=== PATIENT | female | born 1950 | race Caucasian/White ===

== ENCOUNTER → 2017-11-16 | Outpatient (CLI) | payer MEDICARE, MEDICAID | LOC: COL.RAD 11:20 | DX: J40 Bronchitis, not specified as acute or chronic (principal) ==

== ENCOUNTER 2018-01-25 14:08 | Day surgery (SDC) | payer MEDICARE, MEDICAID ==
[~2018-01-25] VITALS: Ht 165.1 cm; Wt 88.7 kg
[2018-01-25] MEDS ORDERED: VENTOLIN0.09 MG IH (14:21)
[2018-01-25] MEDS ORDERED: ALBUTEROL0.83 MG/ML (14:21)
[2018-01-25 14:26] VITALS: BP 115/75; PULSE 103; TEMP 98.1
[2018-01-25 16:05] VITALS: BP 120/77; PULSE 111; TEMP 98.3
[2018-01-25 16:15] VITALS: BP 111/76; PULSE 107
[2018-01-25 16:30] VITALS: BP 138/88; PULSE 119
[2018-01-25 16:45] VITALS: BP 158/96; PULSE 110
== END 2018-01-25 17:45 | disposition home or self-care (01) ==
LOC: SDCO 14:08
DX: Z12.11 Encounter for screening for malignant neoplasm of colon (principal); D12.0 Benign neoplasm of cecum; D12.5 Benign neoplasm of sigmoid colon
CPT/HCPCS: J2250; J3010

== ENCOUNTER → 2018-03-02 | Outpatient (CLI) | payer MEDICAID ==
[~2018-03-02] MED LIST: ALBUTEROL0.83 MG/ML; VENTOLIN0.09 MG IH
== END ==
LOC: COL.RAD 12:16
DX: J40 Bronchitis, not specified as acute or chronic (principal)

== ENCOUNTER → 2018-04-20 | Outpatient (CLI) | payer MEDICARE, MEDICAID | LOC: COL.RAD 10:53 | DX: Z01.818 Encounter for other preprocedural examination (principal); K80.11 Calculus of gallbladder with chronic cholecystitis with obstruction; M43.16 Spondylolisthesis, lumbar region; Z90.710 Acquired absence of both cervix and uterus | CPT/HCPCS: Q9967 ==

== ENCOUNTER → 2018-04-28 | Outpatient (CLI) | payer MEDICARE, MEDICAID ==
[2018-04-28 11:31] LABS: BASO % 0.4 % (0.0-2.0); EOS # 0.1 (0.0-0.7); EOS % 0.7 % (0-4.0); GRAN # 8.3 (1.4-6.5); GRAN % 78.1 % (42.2-75.2); HEMATOCRIT 41.3 % (37.0-47.0); HEMOGLOBIN 14.1 g/dl (12.5-16.0); LYMPH # 1.6 (1.2-3.4); LYMPH % 14.6 % (20.0-51.0); MEAN CELL VOLUME 88 fl (80.0-100.0); MEAN CORPUSCULAR HEMOGLOBIN 30 pg (27.0-31.0); MEAN CORPUSCULAR HGB CONC 34 g/dl (33.0-37.0); MEAN PLATELET VOLUME 9.7 fl (7.4-10.4); MONO # 0.6 (0.1-0.6); MONO % 5.6 % (1.7-9.3); PLATELET COUNT 305 K/mm3 (130-400); RED BLOOD COUNT 4.69 M/mm3 (4.10-5.30); REDCELL DISTRIBUTION WIDTH-CV 12.4 % (11.5-14.5)
[2018-04-28 11:41] LABS: CALCIUM 9.6 mg/dL (8.4-10.2); CREATININE, serum 0.7 mg/dL (0.52-1.25); POTASSIUM 4.1 mmol/L (3.4-5.0)
== END ==
LOC: COL.LAB 10:40
PROVIDERS: Registered Nurse
DX: Z01.812 Encounter for preprocedural laboratory examination (principal); Z13.6 Encounter for screening for cardiovascular disorders; R09.89 Other specified symptoms and signs involving the circulatory and respiratory systems

== ENCOUNTER 2018-05-28 15:14 | Emergency (ER) | payer MEDICARE, MEDICAID ==
[~2018-05-28] VITALS: Ht 165.1 cm; Wt 87.7 kg
[2018-05-28] MEDS ORDERED: MEDROL 4MG DOSPA4 MG PO (15:57)
[2018-05-28] MEDS ORDERED: LEVAQUIN 750MG750 M1 PO (15:57)
[2018-05-28 16:33] VITALS: BP 94/60; PULSE 117; TEMP 97.3
== END 2018-05-28 16:49 | disposition home or self-care (01) ==
LOC: COL.ER 15:14
DX: J20.9 Acute bronchitis, unspecified (principal)
CPT/HCPCS: J1885; J7512

== ENCOUNTER → 2018-06-22 | Outpatient (CLI) | payer MEDICARE, MEDICAID ==
[~2018-06-22] MED LIST changes: +LEVAQUIN 750MG750 M1 PO; +MEDROL 4MG DOSPA4 MG PO
== END ==
LOC: COL.PUL 12:58
DX: R06.02 Shortness of breath (principal)

== ENCOUNTER → 2018-08-16 | Outpatient (CLI) | payer MEDICARE, MEDICAID ==
[2018-08-16 12:24] LABS: BASO % 0.5 % (0.0-2.0); EOS # 0.2 (0.0-0.7); EOS % 2.7 % (0-4.0); GRAN # 5.5 (1.4-6.5); GRAN % 64.2 % (42.2-75.2); HEMATOCRIT 43.5 % (37.0-47.0); HEMOGLOBIN 14.3 g/dl (12.5-16.0); LYMPH # 2.1 (1.2-3.4); LYMPH % 24.2 % (20.0-51.0); MEAN CELL VOLUME 91 fl (80.0-100.0); MEAN CORPUSCULAR HEMOGLOBIN 30 pg (27.0-31.0); MEAN CORPUSCULAR HGB CONC 33 g/dl (33.0-37.0); MEAN PLATELET VOLUME 9.8 fl (7.4-10.4); MONO # 0.7 (0.1-0.6); MONO % 7.9 % (1.7-9.3); PLATELET COUNT 325 K/mm3 (130-400); RED BLOOD COUNT 4.79 M/mm3 (4.10-5.30); REDCELL DISTRIBUTION WIDTH-CV 12.8 % (11.5-14.5)
[2018-08-16 12:28] LABS: MUCOUS Present /lpf; PH 6 (5-8); URINE APPEARANCE Clear; URINE BACTERIA None Seen /hpf; URINE BILIRUBIN Negative (NEGATIVE); URINE BLOOD 2+ (NEGATIVE); URINE COLOR Yellow; URINE GLUCOSE Negative (NEGATIVE); URINE KETONE Negative (NEGATIVE); URINE LEUKOCYTE ESTERASE Negative (NEGATIVE); URINE NITRATE Negative (NEGATIVE); URINE PROTEIN(semi-quant) Negative (NEGATIVE); URINE UROBILINOGEN Negative (NEGATIVE)
[2018-08-16 12:31] LABS: ALBUMIN 4.3 gm/dL (3.5-5.0); BILIRUBIN,TOTAL 0.5 mg/dL (0.0-1.0); CALCIUM 9.7 mg/dL (8.4-10.2); CREATININE, serum 0.69 (0.52-1.25); POTASSIUM 4.2 mmol/L (3.4-5.0); TOTAL PROTEIN 8.2 gm/dL (6.4-8.2)
[2018-08-16 12:38] LABS: COLLECTION METHOD CLEAN CATCH
== END ==
LOC: COL.LAB 11:38
PROVIDERS: Registered Nurse
DX: Z01.818 Encounter for other preprocedural examination (principal); N39.45 Continuous leakage

== ENCOUNTER → 2019-02-02 | Outpatient (CLI) | payer MEDICARE, MEDICAID ==
[~2019-02-02] MED LIST changes: +CLARITIN 1010 MG/TAB PO; +PRILOSEC 20MG20 MG PO; +TOVIAZ8 MG PO
== END ==
LOC: COL.RAD 13:54
DX: J98.4 Other disorders of lung (principal); Z87.09 Personal history of other diseases of the respiratory system

== ENCOUNTER → 2019-03-13 | Outpatient (CLI) | payer MEDICARE, MEDICAID ==
[~2019-03-13] VITALS: Ht 158.8 cm; Wt 92.5 kg
[~2019-03-13] MED LIST changes: +WELLBUTRIN XL300 M1 PO
[2019-03-13 15:29] VITALS: BP 154/68; PULSE 92
== END ==
LOC: LIGHT 15:19
DX: Z68.36 Body mass index [BMI] 36.0-36.9, adult (principal); J98.4 Other disorders of lung; N39.3 Stress incontinence (female) (male); K21.9 Gastro-esophageal reflux disease without esophagitis
CPT/HCPCS: G0463

== ENCOUNTER → 2019-04-10 | Outpatient (CLI) | payer MEDICARE, MEDICAID ==
[~2019-04-10] VITALS: Ht 158.8 cm; Wt 89.6 kg
[2019-04-10 14:59] VITALS: BP 144/76; PULSE 96
== END ==
LOC: LIGHT 14:31
DX: Z68.35 Body mass index [BMI] 35.0-35.9, adult (principal); J98.4 Other disorders of lung; N39.3 Stress incontinence (female) (male); K21.9 Gastro-esophageal reflux disease without esophagitis
CPT/HCPCS: G0463

== ENCOUNTER → 2019-06-01 | Outpatient (CLI) | payer MEDICARE, MEDICAID ==
[2019-06-01 21:39] LABS: IMMUNOGLOBULIN A 323 mg/dL (69-517); IMMUNOGLOBULIN G 1298 mg/dL (552-1631); IMMUNOGLOBULIN M, QUANTITATIVE 60 mg/dL (33-293)
== END ==
LOC: COL.LAB 12:10
PROVIDERS: Student in an Organized Health Care Education/Training Program
DX: J32.9 Chronic sinusitis, unspecified (principal)

== ENCOUNTER → 2019-08-21 | Outpatient (CLI) | payer MEDICARE, MEDICAID ==
[~2019-08-21] VITALS: Ht 158.8 cm; Wt 95.0 kg
[2019-08-21 16:41] VITALS: BP 128/94; PULSE 94
== END ==
LOC: LIGHT 15:47
DX: E66.8 Other obesity (principal); Z68.37 Body mass index [BMI] 37.0-37.9, adult; K21.9 Gastro-esophageal reflux disease without esophagitis; J98.4 Other disorders of lung
CPT/HCPCS: G0463

== ENCOUNTER → 2019-09-11 | Outpatient (CLI) | payer MEDICARE, MEDICAID ==
[~2019-09-11] VITALS: Ht 158.8 cm; Wt 95.0 kg
[2019-09-11 15:04] VITALS: BP 132/86; PULSE 88
== END ==
LOC: LIGHT 11:30
DX: E66.8 Other obesity (principal); Z68.37 Body mass index [BMI] 37.0-37.9, adult; J98.4 Other disorders of lung; K21.9 Gastro-esophageal reflux disease without esophagitis
CPT/HCPCS: G0463

== ENCOUNTER → 2019-11-01 | Outpatient (CLI) | payer MEDICARE, MEDICAID | LOC: MC.RAD 15:59 | DX: Z12.31 Encounter for screening mammogram for malignant neoplasm of breast (principal); N95.1 Menopausal and female climacteric states ==

== ENCOUNTER 2020-03-04 15:15 | Inpatient (IN) | payer MEDICARE, MEDICAID ==
[~2020-03-04] VITALS: Ht 165.1 cm; Wt 93.0 kg
[2020-03-04 17:19] LABS: C-REACTIVE PROTEIN 7.5 mg/dL (0.0-0.9)
[2020-03-04 17:30] LABS: TROPONIN-I < 0.012 ng/mL (0.000-0.035)
[2020-03-04 18:01] LABS: ALBUMIN 3.5 gm/dL (3.5-5.0); BILIRUBIN,TOTAL 0.6 mg/dL (0.0-1.0); CALCIUM 8.1 mg/dL (8.4-10.2); CREATININE, serum 0.77 (0.52-1.25); TOTAL PROTEIN 6.9 gm/dL (6.4-8.2)
[2020-03-04 18:28] LABS: COLLECTION METHOD CLEAN CATCH
[2020-03-04 18:31] LABS: BASO % 0.2 % (0.0-2.0); GRAN # 3.5 (1.4-6.5); GRAN % 80.3 % (42.2-75.2); HEMATOCRIT 43.4 % (37.0-47.0); HEMOGLOBIN 14.9 g/dl (12.5-16.0); LYMPH # 0.6 (1.2-3.4); LYMPH % 13.6 % (20.0-51.0); MEAN CELL VOLUME 84 fl (80.0-100.0); MEAN CORPUSCULAR HEMOGLOBIN 29 pg (27.0-31.0); MEAN CORPUSCULAR HGB CONC 34 g/dl (33.0-37.0); MEAN PLATELET VOLUME 11.4 fl (7.4-10.4); MONO # 0.2 (0.1-0.6); MONO % 5.4 % (1.7-9.3); PLATELET COUNT 203 K/mm3 (130-400); RED BLOOD COUNT 5.19 M/mm3 (4.10-5.30); REDCELL DISTRIBUTION WIDTH-CV 12.6 % (11.5-14.5)
[2020-03-04 18:35] LABS: MUCOUS Present /lpf; PH 6 (5-8); URINE APPEARANCE Hazy; URINE BACTERIA Moderate /hpf; URINE BILIRUBIN Negative (NEGATIVE); URINE BLOOD 1+ (NEGATIVE); URINE COLOR Yellow; URINE GLUCOSE Negative (NEGATIVE); URINE KETONE Trace (NEGATIVE); URINE LEUKOCYTE ESTERASE Negative (NEGATIVE); URINE NITRATE Negative (NEGATIVE); URINE PROTEIN(semi-quant) 1+ (NEGATIVE); URINE UROBILINOGEN >=4.0 mg/dL (NEGATIVE)
[2020-03-04] MEDS ORDERED: PRIL40 PO (20:16)
[2020-03-04] MEDS ORDERED: FLONASE NASAL S16 GM NS (20:17)
[2020-03-04] MEDS ORDERED: RT ADVAIR 228 DISKUS IH (20:17)
--- NOTE | 2020-03-04 22:00 | NUR ---
Admitted to medical floor from ER-- covid +, has been having nausea/vomiting at home and some SOB, denies all these at this time-- on 3.5L/nc of o2, sats 91%, nurse practioner here now to see pt-- she states she will put in orders for IV fluids and antibiotics. Pt up to bathroom with assist- voiding well. Pt is armenian speaking mainly- can speak some amharic-- wants to just go to sleep- states "Im ok- just sleep "-- just has been talking with ADOLESCENT COORDINATOR so does not want to answer any more questions-- -pleasant- just very tired!
[2020-03-04 22:19] VITALS: BP 120/70; PULSE 113; TEMP 98.6
[2020-03-05 01:17] VITALS: BP 134/64; PULSE 102; TEMP 100.8
--- NOTE | 2020-03-05 02:00 | NUR ---
tEMP 100.8--Sagrario FORREST aware-- ordered tylenol for patient.
[2020-03-05 04:56] VITALS: BP 98/53; PULSE 85; TEMP 97.7
--- NOTE | 2020-03-05 05:53 | NUR ---
Did sleep well all night-- no requests, temp up to 100.8,, now 97.7,,, o2 was off when pt was checked during the night-- sats 90%,, put o2 back on at 3L/nc and sats 93%. Up to BSC with assist
--- NOTE | 2020-03-05 07:00 | NUR ---
Report received from PEREZ Donald. PT in bed resting with eyes closed, will continue to monitor.
[2020-03-05 07:35] LABS: GRAN # 1.9 (1.4-6.5); GRAN % 54.2 % (42.2-75.2); HEMATOCRIT 37.5 % (37.0-47.0); LYMPH # 1.3 (1.2-3.4); LYMPH % 36.5 % (20.0-51.0); MEAN CELL VOLUME 87 fl (80.0-100.0); MEAN CORPUSCULAR HEMOGLOBIN 29 pg (27.0-31.0); MEAN CORPUSCULAR HGB CONC 33 g/dl (33.0-37.0); MEAN PLATELET VOLUME 10.3 fl (7.4-10.4); MONO # 0.3 (0.1-0.6); MONO % 9.3 % (1.7-9.3); PLATELET COUNT 174 K/mm3 (130-400); RED BLOOD COUNT 4.29 M/mm3 (4.10-5.30)
[2020-03-05 07:43] LABS: CALCIUM 7.6 mg/dL (8.4-10.2); CREATININE, serum 0.62 (0.52-1.25); HEMOGLOBIN 12.5 g/dl (12.5-16.0); PHOSPHOROUS 3.2 mg/dL (2.5-4.5); POTASSIUM 3.4 mmol/L (3.4-5.0)
[2020-03-05 09:00] VITALS: BP 120/81; PULSE 89; TEMP 98.7
--- NOTE | 2020-03-05 10:00 | NUR ---
Pt resting very soundly upon entry into the room. Able to arouse with verbal and gentle physical stimuli. Tried to discuss needs in japanese, pt denies any nausea, pain, cough. Encouraged using IS every hour and taking big deep breaths. 02 only at 90% on 3LNC. Denies needs, IVF to RFA. Wants to eat CL breakfast later and rest now. Will continue anabela onitor.
--- NOTE | 2020-03-05 11:38 | NUR ---
Senior Network Engineer contacted the patient's daughter, Edel Cotter #[id number] to complete intake. Edel is Lebanese speaking. The patient lives alone in [place] and is independent. The patient has an inhaler and is not on oxygen at baseline. The patient's PCP is VISHAL Bains at [facility]. The patient receives medications from [facility]. The patient does not have advanced directives. The patient is not and has 5 children. Theresa Oliver lives in [place], and RamírezCedrickma and Veto Parra live in [place]. The plan is for the patient to return home at discharge. The patient is currently on 3L of oxygen and may require it at discharge. SW to follow up for safest discharge disposition.
[2020-03-05 13:00] VITALS: BP 153/75; PULSE 99; TEMP 98.7
[2020-03-05 16:51] VITALS: BP 129/73; PULSE 94; TEMP 99.2
--- NOTE | 2020-03-05 18:58 | NUR ---
Called pts daughter per reqeust of pt to ask for things she would like her to bring. Pt resting between disturbances all day. Doing well but requires 3L NC to maintain saturations. Denies pain or other needs, will give report to nightshift nruse who will resume care.
[2020-03-05 20:00] VITALS: BP 128/69; PULSE 90; TEMP 97.9
[2020-03-06 00:41] VITALS: BP 141/63; PULSE 87; TEMP 97.9
[2020-03-06 04:00] VITALS: BP 113/57; PULSE 71; TEMP 97.6
[2020-03-06 07:00] LABS: GRAN # 2.1 (1.4-6.5); GRAN % 68.4 % (42.2-75.2); HEMATOCRIT 40.5 % (37.0-47.0); HEMOGLOBIN 13.2 g/dl (12.5-16.0); LYMPH # 0.7 (1.2-3.4); LYMPH % 22.5 % (20.0-51.0); MEAN CELL VOLUME 87 fl (80.0-100.0); MEAN CORPUSCULAR HEMOGLOBIN 28 pg (27.0-31.0); MEAN CORPUSCULAR HGB CONC 33 g/dl (33.0-37.0); MEAN PLATELET VOLUME 10.6 fl (7.4-10.4); MONO # 0.3 (0.1-0.6); MONO % 8.8 % (1.7-9.3); PLATELET COUNT 223 K/mm3 (130-400); RED BLOOD COUNT 4.68 M/mm3 (4.10-5.30); REDCELL DISTRIBUTION WIDTH-CV 12.8 % (11.5-14.5)
[2020-03-06 07:12] LABS: CALCIUM 8.5 mg/dL (8.4-10.2); CREATININE, serum 0.51 (0.52-1.25); MAGNESIUM 2.3 mg/dL (1.6-2.3); POTASSIUM 3.9 mmol/L (3.4-5.0)
[2020-03-06 08:00] VITALS: BP 137/62; PULSE 75
--- NOTE | 2020-03-06 10:32 | NUR ---
Assessment complete. Patient resting in bed on entry, sound asleep. She awoke to verbal and physical stimulation. States that she feels good today and that we are taking good care of her. She took her pills well with water. We were able to converse minimally. Denies pain or discomfort, states she is just tired, Will continue to monitor. Call light is in reach.
[2020-03-06 11:41] VITALS: BP 140/62; PULSE 97; TEMP 98.4
[2020-03-06 16:47] VITALS: BP 138/82; PULSE 98; TEMP 98.7
--- NOTE | 2020-03-06 17:50 | NUR ---
At this time, pt called but nothing was spoken over the call light. I went to the patient room after finished with other COVID patient and patient was tearful and complaining of pain at her IV site. IV had infiltrated during Remdesivir infusion, this infusion was stopped. New IV was place in L FA with no issues. R FA IV was removed. Patient was upset stating that it was my fault and I did not do a good job because this did not happen with other nurses. I assured her that this is a normal complication with IVs and that I would make her comfortable again CASS. PAtient remained frustrated but tolerated new IV well. IV is now infusing Remdesivir at a slower rate as patient insisted I "go slow" and "be careful". No other needs at thsi time. Will continue to monitor.
[2020-03-06 19:44] VITALS: BP 172/94; PULSE 89; TEMP 97.9
[2020-03-07 00:34] VITALS: BP 143/69; PULSE 91; TEMP 97.4
[2020-03-07 03:06] VITALS: BP 131/60; PULSE 92; TEMP 97.6
--- NOTE | 2020-03-07 07:00 | NUR ---
Report received from PEREZ Valle. PT sleeping ,will continue to monitor.
[2020-03-07 08:24] VITALS: BP 109/54; PULSE 90; TEMP 98.2
--- NOTE | 2020-03-07 10:27 | NUR ---
The hospitalist informed ELIZABETH that the patient's chest x-ray is worse and she has increased oxygen needs today. She will likely be here a few more days. ELIZABETH to continue to follow.
--- NOTE | 2020-03-07 11:15 | NUR ---
Assessment charted. Pt resting in bed, upon entry pt wakens easlily and states she is hungry even though her full breakfast tray is in her room untouched. Assisted pt to sit up and eat a little. Taking pills well, 02 at 4L NC. Pt appears more short of breath and work of breathing increased today. lungs are course at bases and diminished. Discussed xray results with pt and called daughter Edel who speaks guyanese well. Called Dr. Blackburn per pts request for reports of "stress" and inability to sleep. Order received and will input. INT to RW. Denies pain. Will conitnue to monitor.
[2020-03-07 12:42] VITALS: BP 158/93; PULSE 103; TEMP 97.8
--- NOTE | 2020-03-07 17:41 | NUR ---
Pt moved to new room, otlerated well, up to bathroom often and starting to have better urine output. Recieved order for supper, will call and get order into computer. PT denies pian, seems to be breathing easier this afternoon, ermains at 5L NC. IV antibiotics infusing. Will continue to monitor.
--- NOTE | 2020-03-07 18:09 | NUR ---
Assisted with ordering supper.
[2020-03-07 19:28] VITALS: BP 144/67; PULSE 95; TEMP 98.3
--- NOTE | 2020-03-07 20:00 | NUR ---
Shift assessment complete. Pt resting in bed, denies pain. SOA w/exertion. NC at 5 lpm O2. NC pulled down upon entry, assisted pt in placing back in nares. Zosyn infusing. Lung sounds diminished. Heart RRR. A&Ox4. Continuing to monitor.
[2020-03-07 23:07] VITALS: BP 132/59; PULSE 90; TEMP 98.9
[2020-03-08 04:44] VITALS: BP 137/68; PULSE 78; TEMP 97.9
--- NOTE | 2020-03-08 05:54 | NUR ---
Resting in bed w/eyes closed most of night w/o complaint. Remains on 5 lpm O2 with sats stable.
[2020-03-08 07:57] VITALS: BP 130/78; PULSE 85; TEMP 97.8
--- NOTE | 2020-03-08 09:36 | NUR ---
Pt assessment complete. Pt is laying in bed upon entry, she is A/O. Pt has some congestion and some SOB. Currently on 5L O2 via NC. Pt denies pain. No diarrhea. Zosyn infusing into IV. No signs of complications. Pt has no further needs. Call light within reach.
[2020-03-08 11:47] VITALS: BP 137/57; PULSE 82; TEMP 98.2
[2020-03-08 16:04] VITALS: BP 142/68; PULSE 89; TEMP 97.4
[2020-03-08 19:18] VITALS: BP 148/70; PULSE 81; TEMP 98
--- NOTE | 2020-03-08 22:12 | NUR ---
Patient out of bed to the bathroom at this time with the CERTIFIED MEDICAL CODER. No requests or concerns at this time.
[2020-03-08 23:55] VITALS: BP 143/71; PULSE 77; TEMP 98.3
[2020-03-09 03:51] VITALS: BP 138/64; PULSE 66; TEMP 98.2
[2020-03-09 07:25] VITALS: BP 141/76; PULSE 67; TEMP 98
--- NOTE | 2020-03-09 08:02 | NUR ---
Assessment complete. Patient asleep at time of assessment. I attempted to wake patient in order to order her breakfast but patient shook her head no and refused to answer. No signs of pain or discomfort at this time. Lung sounds coarse on ascultation. No other needs were expressed at this time. Call light is in reach. Fall precautions in place. Will continue to monitor.
[2020-03-09 12:04] VITALS: BP 145/73; PULSE 74; TEMP 97.7
[2020-03-09 16:16] VITALS: PULSE 61; TEMP 97.4
--- NOTE | 2020-03-09 17:01 | NUR ---
Patient has had a good day. She was up to the restroom with assistance as needed and was able to take a shower this afternoon. Patient napped on and off through the day. No complaints of pain or discomfort. [facility] light is in reach.
[2020-03-09 19:26] VITALS: BP 144/77; PULSE 80; TEMP 97.5
[2020-03-09 23:51] VITALS: BP 136/76; PULSE 83; TEMP 97.6
[2020-03-10 03:42] VITALS: BP 125/64; PULSE 81; TEMP 97.5
[2020-03-10 06:38] LABS: HEMATOCRIT 38.1 % (37.0-47.0); HEMOGLOBIN 12.6 g/dl (12.5-16.0); MEAN CELL VOLUME 86 fl (80.0-100.0); MEAN CORPUSCULAR HEMOGLOBIN 28 pg (27.0-31.0); MEAN CORPUSCULAR HGB CONC 33 g/dl (33.0-37.0); MEAN PLATELET VOLUME 10.4 fl (7.4-10.4); PLATELET COUNT 338 K/mm3 (130-400); RED BLOOD COUNT 4.43 M/mm3 (4.10-5.30); REDCELL DISTRIBUTION WIDTH-CV 12.5 % (11.5-14.5)
[2020-03-10 06:49] LABS: CREATININE, serum 0.67 (0.52-1.25)
--- NOTE | 2020-03-10 07:00 | NUR ---
Report received from PEREZ Valle. PT in bed resting with eyes closed, will continue to monitor.
[2020-03-10 08:03] VITALS: BP 137/62; PULSE 72; TEMP 97.2
[2020-03-10 08:12] LABS: LYMPHOCYTE 8 % (20.0-51.0); NEUTROPHILS 78 % (42.0-75.2); PLATELET ESTIMATE NORMAL (NORMAL)
[2020-03-10 11:26] VITALS: BP 132/45; PULSE 79; TEMP 97.8
--- NOTE | 2020-03-10 11:27 | NUR ---
Assessmetn charted. Pt states she is feeling well, denies shortness of breath, lungs are clear today, titrated down to 5L with RT. Up ad mellissa, taking PO well, will continue to monitor. INT to RFA
[2020-03-10 16:11] VITALS: BP 127/64; PULSE 69; TEMP 97.3
--- NOTE | 2020-03-10 18:12 | NUR ---
Pt has had a good day, rested most of the day but was awake most of the night per nightshift. Resting in bed, eating well for supper, up to bathroom well, steady gait, denies needs, will give bedside shift report to [facility] nurse who will resume care.
[2020-03-10 19:50] VITALS: BP 153/76; PULSE 86; TEMP 98.7
[2020-03-10 23:16] VITALS: BP 142/84; PULSE 86; TEMP 97.6
[2020-03-11 04:59] VITALS: BP 138/73; PULSE 84; TEMP 97.8
[2020-03-11 07:25] VITALS: BP 140/72; PULSE 73; TEMP 97.6
--- NOTE | 2020-03-11 10:58 | NUR ---
Assessment complete. Patient awake and wanting to use restroom at this time. She did well ambulating. No complaints of pain or discomfort. Did state she did not feel well but did sit up on the side of the bed for breakfast. IV site working well abx infusing at this time. Took meds well. No other needs were expressed at this time. Fall precautions in place. BEd alarm set. Will continue to monitor. Call light is in reach.
[2020-03-11 11:55] VITALS: BP 132/63; PULSE 77; TEMP 97.4
[2020-03-11 15:32] VITALS: BP 138/74; PULSE 87; TEMP 97.4
--- NOTE | 2020-03-11 17:20 | NUR ---
Patient has had an uneventful shift. She reported feeling stressed and anxious once through the day. PRN anxienty medication provided for this. IV site is intact, working well. No complaints of pain or discomfort. Will continue to monitor. Call light is in reach.
[2020-03-11 19:40] VITALS: BP 133/75; PULSE 95; TEMP 97.4
--- NOTE | 2020-03-11 20:00 | NUR ---
PATIENT IS FAIR IN THE ROOM ON O2 THERAPY.DUE MEDS GIVEN,ASSESSMENT DONE,SHE IS AOX4.REPORTED OF PAIN AND ANXIETY MEDS GIVEN PER MAR.NO OTHER NEEDS AT THIS TIME
[2020-03-12] VITALS (7 sets, daily range): BP systolic 122–150; BP diastolic 53–70; PULSE 76–93; TEMP 97.4–98.1
--- NOTE | 2020-03-12 05:58 | NUR ---
PATIENT HAD A RESTFUL NIGHT ON HIGH FLOW O2 AT 7L SATTING ABOVE 90.DUE MEDS GIVEN,DENIES PAIN.NO NEEDS AT THIS TIME.
--- NOTE | 2020-03-12 09:10 | NUR ---
Patient alert and oriented. 88% on 3L, Increased to 90% on 5L. Resting in bed at this time. gave guaifensin for mucus relief.
--- NOTE | 2020-03-12 12:02 | NUR ---
Patient alert and oriented. denies any pain, nausea, diarrhea. require 5L O2 on 91-93%. patient seem tired this morning. Later report improvement in strength this noon. good appetite. Patient resting in bed at this time, call light within reach. xray showed mild worsened pneumonia.
--- NOTE | 2020-03-12 18:23 | NUR ---
Patient continue to tolerate diet well. On 8L O2 HFNC. Patient rested well this afternoon. patient developed multiple blister on her lip. provided patient with lip moisturizer.
--- NOTE | 2020-03-12 22:01 | NUR ---
PATIENT IS PLEASANT IN THE ROOM,DUE MEDICATION GIVEN,ASSESSMENT DONE,DENIES PAIN.OFFERED ICE CREAM AND WATER.NO OTHER NEEDS AT THIS TIME.
[2020-03-13 07:40] VITALS: BP 117/65; PULSE 83; TEMP 97.8
[2020-03-13 08:05] LABS: HEMATOCRIT 37.9 % (37.0-47.0); HEMOGLOBIN 12.5 g/dl (12.5-16.0); MEAN CELL VOLUME 89 fl (80.0-100.0); MEAN CORPUSCULAR HEMOGLOBIN 29 pg (27.0-31.0); MEAN CORPUSCULAR HGB CONC 33 g/dl (33.0-37.0); MEAN PLATELET VOLUME 10.1 fl (7.4-10.4); PLATELET COUNT 371 K/mm3 (130-400); RED BLOOD COUNT 4.25 M/mm3 (4.10-5.30); REDCELL DISTRIBUTION WIDTH-CV 12.9 % (11.5-14.5)
--- NOTE | 2020-03-13 08:17 | NUR ---
Patient asleep at this moment. patient appear comfortable in bed with call light within reach.
[2020-03-13 08:24] LABS: CREATININE, serum 0.67 (0.52-1.25); POTASSIUM 4.7 mmol/L (3.4-5.0)
[2020-03-13 08:25] LABS: CALCIUM 9.2 mg/dL (8.4-10.2); MAGNESIUM 2.1 mg/dL (1.6-2.3)
[2020-03-13 08:41] LABS: BAND 2 % (0-10); LYMPHOCYTE 9 % (20.0-51.0); METAMYELOCYTE 2 % (0-0); NEUTROPHILS 79 % (42.0-75.2); PLATELET ESTIMATE NORMAL (NORMAL)
[2020-03-13 11:15] VITALS: BP 139/67; PULSE 82; TEMP 97.5
--- NOTE | 2020-03-13 11:26 | NUR ---
Patient Patient blood sugar this am 441, recheck 391. RN informed Dr. Carlson. A1C was checked 6.9, [facility] accu check, with insulin low sliding scale. diet changed to carb control.
--- NOTE | 2020-03-13 11:36 | NUR ---
PATIENT ABLE TO TITRATE FROM 7 TO 6 LPM, SPO2 92%
--- NOTE | 2020-03-13 13:40 | NUR ---
Construction Site Crossing Guard collaborated with Hospitalist who advised patient is anxious to return home but is still on 8 liters. Hospitalist is considering DC today if oxygen needs can be met at home. ELIZABETH contacted [facility] and was advised they only have tanks available for that level of oxygen. ELIZABETH contacted Eloisa with [employer] who advised they have concentrators that can do 8 liters and they can deliver up to patient's room, even though she has been COVID positive. ELIZABETH will continue to follow.
--- NOTE | 2020-03-13 13:59 | NUR ---
PATIENT REQUIRED 8 LPM DURING AMBULATION FOR SPO2 >87%.
--- NOTE | 2020-03-13 14:45 | NUR ---
Patient blood sugar this am was 441, recheck was 391. Dr. Carlson was informed. patient was started on low sliding scale insulin, achs accucheck. A1C was checked 6.9 nystatin was ordered for mouth blister. Patient on 8L O2 HFNC. patient tolerate exercise with physical therapist well.
[2020-03-13] MEDS ORDERED: NYSTATIN OR100 MU/ML PO (14:47)
[2020-03-13] MEDS ORDERED: DECADRON6 MG PO (14:48)
[2020-03-13] MEDS ORDERED: GLUCOPHAGE500 MG/TAB PO (14:48)
[2020-03-13] MEDS ORDERED: OXYGEN NASAL.CANN (14:50)
[2020-03-13 15:46] VITALS: BP 145/82; PULSE 98; TEMP 98.2
--- NOTE | 2020-03-13 15:56 | NUR ---
Patient to discharge home today with home oxygen. ELIZABETH contacted Amelia at [facility] and faxed referral/orders as patient is going home with new home oxygen. ELIZABETH also faxed referral/orders to Eloisa at [employer] who confirmed she received everything and will have supplies delivered to the hospital. Morena, Coal And Ash Supervisor scheduled follow up appointment for patient at [facility] with patient's PCP and ELIZABETH faxed records to [facility]. ELIZABETH Best contacted patient's daughter, Edel and updated her on discharge plan. No additional needs at this time.
--- NOTE | 2020-03-13 17:25 | NUR ---
INT discontinued. called staff interpreter to translate discharge instruction. patient have a follow up appt on the 03/25/20. new home medication decadron, nystatin, metformin. patient discharge on 8L of O2. 6 tanks and concentrator was sent home with patient. Patient discharge home with daughter.
== END 2020-03-13 16:55 | disposition home or self-care (01) | DRG 177 ==
LOC: COL.ER 15:15 → MEDICAL 19:28 → PEDS 03-07 13:17
PROVIDERS: Family Medicine; Internal Medicine; Nurse Practitioner; Physician Assistant; ADMIT Hospitalist
PROC: XW033E5 Introduction of Remdesivir Anti-infective into Peripheral Vein, Percutaneous Approach, New Technology Group 5 (ICD-10-PCS; principal; 2020-03-06)
DX: U07.1 COVID-19 (principal); J96.01 Acute respiratory failure with hypoxia; B37.0 Candidal stomatitis; E87.1 Hypo-osmolality and hyponatremia; E11.9 Type 2 diabetes mellitus without complications; R53.81 Other malaise; N32.81 Overactive bladder; R91.1 Solitary pulmonary nodule; R50.9 Fever, unspecified; R11.2 Nausea with vomiting, unspecified; R00.0 Tachycardia, unspecified; J44.9 Chronic obstructive pulmonary disease, unspecified; Z90.710 Acquired absence of both cervix and uterus
CPT/HCPCS: OP; 99222-AI; 99232-AI; 99233-AI; 99239; A9284; J0696; J1650; J1815; J2060; J2405; J2543; J7030; J7050; J8540; Q9967

== ENCOUNTER 2021-06-29 13:24 | Outpatient (RCR) | payer MEDICARE, MEDICAID ==
[~2021-06-29 13:24] MED LIST changes: +DECADRON6 MG PO; +FLONASE NASAL S16 GM NS; +GLUCOPHAGE500 MG/TAB PO; +NYSTATIN OR100 MU/ML PO; +OXYGEN NASAL.CANN; +PRIL40 PO; +RT ADVAIR 228 DISKUS IH
== END 2021-07-07 | disposition still patient (30) ==
LOC: MKS.ESL.PT
DX: M54.50 Low back pain, unspecified (principal); G89.29 Other chronic pain

== ENCOUNTER 2021-07-29 13:15 | Outpatient (RCR) | payer MEDICARE, MEDICAID | END 2021-08-06 | disposition still patient (30) | LOC: MKS.ESL.PT | DX: M54.50 Low back pain, unspecified (principal); G89.29 Other chronic pain ==

== ENCOUNTER 2021-08-20 17:33 | Emergency (ER) | payer MEDICARE, MEDICAID ==
[~2021-08-20] VITALS: Ht 165.1 cm; Wt 92.3 kg
[2021-08-20 18:10] VITALS: TEMP 98.8
[2021-08-20 19:30] LABS: BASO # 0.1 K/mm3 (0.0-0.2); BASO % 0.7 % (0.0-2.0); EOS # 0.2 K/mm3 (0.0-0.7); EOS % 2.7 % (0.0-4.0); GRAN # 5.3 K/mm3 (1.4-6.5); GRAN % 59.2 % (42.2-75.2); HEMATOCRIT 40.6 % (37.0-47.0); HEMOGLOBIN 13.7 g/dl (12.5-16.0); LYMPH # 2.6 K/mm3 (1.2-3.4); LYMPH % 29.2 % (20.0-51.0); MEAN CELL VOLUME 90 fl (80.0-100.0); MEAN CORPUSCULAR HEMOGLOBIN 30 pg (27-31); MEAN CORPUSCULAR HGB CONC 34 g/dl (33.0-37.0); MEAN PLATELET VOLUME 9.6 fl (7.4-10.4); MONO # 0.7 K/mm3 (0.1-0.6); MONO % 7.6 % (1.7-9.3); PLATELET COUNT 296 K/mm3 (130-400); RED BLOOD COUNT 4.52 M/mm3 (4.10-5.30); REDCELL DISTRIBUTION WIDTH-CV 12.9 % (11.5-14.5)
[2021-08-20 19:48] LABS: ALBUMIN 3.4 gm/dL (3.4-4.8); BILIRUBIN,TOTAL 0.4 mg/dL (0.2-1.2); CALCIUM 9.4 mg/dL (8.4-10.2); CREATININE, serum 0.8 mg/dL (0.57-1.11); POTASSIUM 4.5 mmol/L (3.5-4.5); TOTAL PROTEIN 6.4 gm/dL (6.2-8.1)
[2021-08-20 20:19] LABS: COLLECTION METHOD CLEAN CATCH
[2021-08-20 20:28] LABS: PH 8 (5-8); SQUAMOUS EPITHELIAL 0-2 /hpf (0-10); URINE APPEARANCE Clear (CLEAR/HAZY); URINE BACTERIA None Seen /hpf (NONE SEEN); URINE BILIRUBIN Negative (NEGATIVE); URINE BLOOD 1+ (NEGATIVE); URINE COLOR Straw (YELLOW); URINE GLUCOSE Negative (NEGATIVE); URINE KETONE Negative (NEGATIVE); URINE LEUKOCYTE ESTERASE Negative (NEGATIVE); URINE NITRATE Negative (NEGATIVE); URINE PROTEIN(semi-quant) Negative (NEGATIVE); URINE RBC 0-2 /hpf (0-2); URINE UROBILINOGEN Negative (NEGATIVE)
[2021-08-20 21:30] VITALS: BP 146/93; PULSE 92
== END 2021-08-20 21:33 | disposition home or self-care (01) ==
LOC: COL.ER 17:33
PROVIDERS: Nurse Practitioner
DX: R60.0 Localized edema (principal)

== ENCOUNTER 2021-09-13 15:45 | Emergency (ER) | payer MEDICARE, MEDICAID ==
[~2021-09-13] VITALS: Ht 165.1 cm; Wt 86.4 kg
[2021-09-13 15:51] VITALS: TEMP 98.4
[2021-09-13 17:33] LABS: BASO % 0.3 % (0.0-2.0); EOS # 0.1 K/mm3 (0.0-0.7); EOS % 1.2 % (0.0-4.0); GRAN # 7.7 K/mm3 (1.4-6.5); GRAN % 74.4 % (42.2-75.2); HEMOGLOBIN 13.4 g/dl (12.5-16.0); LYMPH # 1.8 K/mm3 (1.2-3.4); LYMPH % 17.4 % (20.0-51.0); MEAN CELL VOLUME 89 fl (80.0-100.0); MEAN CORPUSCULAR HEMOGLOBIN 30 pg (27-31); MEAN CORPUSCULAR HGB CONC 34 g/dl (33.0-37.0); MONO # 0.7 K/mm3 (0.1-0.6); MONO % 6.5 % (1.7-9.3); PLATELET COUNT 302 K/mm3 (130-400); RED BLOOD COUNT 4.52 M/mm3 (4.10-5.30); REDCELL DISTRIBUTION WIDTH-CV 12.8 % (11.5-14.5)
[2021-09-13 17:48] LABS: ALBUMIN 3.4 gm/dL (3.4-4.8); BILIRUBIN,TOTAL 0.5 mg/dL (0.2-1.2); CREATININE, serum 0.72 mg/dL (0.57-1.11); POTASSIUM 4.1 mmol/L (3.5-4.5); TOTAL PROTEIN 6.5 gm/dL (6.2-8.1)
[2021-09-13 18:26] LABS: COLLECTION METHOD CLEAN CATCH
[2021-09-13 18:34] LABS: MUCOUS Present (NOT PRESENT); URINE BACTERIA None Seen /hpf (NONE SEEN)
[2021-09-13 18:44] LABS: PH 6 (5-8); TRICYCLIC ANTIDEPRESS URINE NEGATIVE; URINE APPEARANCE Clear (CLEAR/HAZY); URINE COLOR Yellow (YELLOW); URINE PROTEIN(semi-quant) 1+ (NEGATIVE)
[2021-09-13 18:45] LABS: URINE BLOOD Negative (NEGATIVE); URINE GLUCOSE Negative (NEGATIVE); URINE KETONE 1+ (NEGATIVE); URINE NITRATE Negative (NEGATIVE)
[2021-09-13 19:20] VITALS: BP 146/76; PULSE 87
== END 2021-09-13 19:20 | disposition home or self-care (01) ==
LOC: COL.ER 15:45
PROVIDERS: Physician Assistant
DX: S09.90XA Unspecified injury of head, initial encounter (principal); S13.9XXA Sprain of joints and ligaments of unspecified parts of neck, initial encounter; Z20.822 Contact with and (suspected) exposure to COVID-19; W01.198A Fall on same level from slipping, tripping and stumbling with subsequent striking against other object, initial encounter; Y92.009 Unspecified place in unspecified non-institutional (private) residence as the place of occurrence of the external cause
CPT/HCPCS: J3010

== ENCOUNTER → 2022-04-07 | Outpatient (REF) | payer MEDICAID | LOC: ZCOL.LAB 16:05 | DX: H65.492 Other chronic nonsuppurative otitis media, left ear (principal) ==

== ENCOUNTER 2023-01-26 15:20 | Inpatient (IN) | payer MEDICARE ==
[~2023-01-26] VITALS: Ht 162.6 cm; Wt 97.9 kg
[~2023-01-26 15:20] MED LIST changes: +AMOXICILLIN 8751 TAB PO; +PREDNISONE50 MG PO
[2023-01-26 16:39] LABS: BASO # 0.1 K/mm3 (0.0-0.2); BASO % 0.3 % (0.0-2.0); EOS # 0.2 K/mm3 (0.0-0.7); EOS % 1.1 % (0.0-4.0); GRAN # 13.1 K/mm3 (1.4-6.5); GRAN % 79.1 % (42.2-75.2); HEMATOCRIT 39.8 % (37.0-47.0); HEMOGLOBIN 13.2 g/dl (12.5-16.0); LYMPH % 12.3 % (20.0-51.0); MEAN CELL VOLUME 91 fl (80.0-100.0); MEAN CORPUSCULAR HEMOGLOBIN 30 pg (27-31); MEAN CORPUSCULAR HGB CONC 33 g/dl (33.0-37.0); MEAN PLATELET VOLUME 10.2 fl (7.4-10.4); MONO # 1.1 K/mm3 (0.1-0.6); MONO % 6.7 % (1.7-9.3); PLATELET COUNT 336 K/mm3 (130-400); RED BLOOD COUNT 4.39 M/mm3 (4.10-5.30); REDCELL DISTRIBUTION WIDTH-CV 13.2 % (11.5-14.5)
[2023-01-26 16:50] LABS: ALANINE AMINOTRANSFERASE 14 U/L (0-55); ALBUMIN 3.3 gm/dL (3.4-4.8); ALKALINE PHOSPHATASE 74 U/L (40-150); ANION GAP 10 mmol/L (7-16); AST,SGOT 17 U/L (5-34); BILIRUBIN,TOTAL 0.6 mg/dL (0.2-1.2); BLOOD UREA NITROGEN 17 mg/dL (10-20); C-REACTIVE PROTEIN 2.22 mg/dL (0.00-0.50); CARBON DIOXIDE 25 mmol/L (23-31); CHLORIDE 102 mmol/L (98-107); CREATININE, serum 0.72 mg/dL (0.57-1.11); GLUCOSE 123 mg/dL (70-99); POTASSIUM 3.9 mmol/L (3.5-4.5); SODIUM 137 mmol/L (136-145); TOTAL PROTEIN 6.4 gm/dL (6.2-8.1)
[2023-01-26 16:59] LABS: TROPONIN-I < 0.010 ng/mL (0.00-0.033)
[2023-01-26] MEDS ORDERED: Albuterol/Ipratropium 3 MG-0.5 MG/3 ML Neb Soln IH ONE (17:30)
[2023-01-26] MEDS ORDERED: cefTRIAXone 1 G in Water For Injection,Sterile 10 ML IV ONE (17:30)
--- NOTE | 2023-01-26 18:15 | NUR ---
Patient transfered from ER with 2L NC, able to transfer herself from bed to bed, and use the restroom. Complains of swelling legs and in her face. Some chest pain. Assessment intake completed.
[2023-01-26] MEDS ORDERED: GLUCOPHAGE XR500 M1 PO (18:28)
[2023-01-26] MEDS ORDERED: Ondansetron 4 MG/2 ML VIAL IV PRN (18:30)
[2023-01-26] MEDS ORDERED: Furosemide 40 MG/4 ML VIAL IV ONE (18:30)
[2023-01-26] MEDS ORDERED: Acetaminophen 325 MG TAB PO PRN (18:30)
[2023-01-26] MEDS ORDERED: Albuterol 0.083% Neb Soln 2.5 MG/3 ML UD IH PRN (18:30)
[2023-01-26 18:33] VITALS: BP_SYST 115
[2023-01-26 18:34] VITALS: BP 145/83; PULSE 104; TEMP 98.8
[2023-01-26] MEDS ORDERED: Insulin Aspart (NovoLOG) SQ SCH (18:52)
[2023-01-26] MEDS ORDERED: Azithromycin 500 MG in NS 250 ML IV SCH (19:00)
[2023-01-26] MEDS ORDERED: Dextrose 50% Water 25 GM/50 ML SYRINGE IV PRN (19:15)
[2023-01-26] MEDS ORDERED: Glucagon 1 MG VIAL IM PRN (19:15)
[2023-01-26] MEDS ORDERED: Dextrose (Glucose) 15 GM (4 x 3.75 GM) Chewable TABLET PACK PO PRN (19:15)
[2023-01-26 19:31] LABS: CHOLESTEROL RISK RATIO 3.9
[2023-01-26 19:38] VITALS: BP 145/60; PULSE 103; TEMP 98.4
[2023-01-26 19:51] LABS: TSH w REFLEX 0.843 uIU/mL (0.350-4.940)
[2023-01-26 20:30] VITALS: BP_SYST 121
--- NOTE | 2023-01-26 20:30 | NUR ---
Initial shift assessment done- lithuanian speaking with just a little belarusian/able to comminicate/wounld like something for sleep and headache- tylenol given and will call for sleeper tonight. tele on, o2 at 2L/nc, lung sounds coarse,, did get lasix IV at shift change-- did now put hat in toilet so we can measure urine output-
[2023-01-26] MEDS ORDERED: Melatonin 3 MG TAB PO PRN (21:00)
[2023-01-26 23:24] VITALS: BP 121/61; PULSE 87; TEMP 98.2
[2023-01-27] VITALS (12 sets, daily range): BP systolic 121–148; BP diastolic 65–87; PULSE 84–110; TEMP 97.6–98.2
--- NOTE | 2023-01-27 04:44 | NUR ---
Quiet night- has voided over 1300cc urine this shift - o2 at 2L/nc,with sats 97%
[2023-01-27 05:56] LABS: CREATININE, serum 0.65 mg/dL (0.57-1.11); POTASSIUM 3.7 mmol/L (3.5-4.5)
[2023-01-27] MEDS ORDERED: TRELEGY ELLIPT1 EAC1 IH (08:03)
[2023-01-27] MEDS ORDERED: GLUCOPHAGE500 MG/TAB PO (08:03)
[2023-01-27 08:04] LABS: HEMOGLOBIN 11.9 g/dl (12.5-16.0); MEAN CELL VOLUME 92 fl (80.0-100.0); MEAN CORPUSCULAR HEMOGLOBIN 30 pg (27-31); MEAN CORPUSCULAR HGB CONC 32 g/dl (33.0-37.0); MEAN PLATELET VOLUME 10.1 fl (7.4-10.4); PLATELET COUNT 297 K/mm3 (130-400); RED BLOOD COUNT 4.02 M/mm3 (4.10-5.30); REDCELL DISTRIBUTION WIDTH-CV 13.6 % (11.5-14.5)
[2023-01-27] MEDS ORDERED: TRELEGY ELLIPT1 EACH IH (08:04)
[2023-01-27 08:05] LABS: HEMATOCRIT 36.9 % (37.0-47.0)
[2023-01-27] MEDS ORDERED: PREDNISONE10 MG PO (08:06)
--- NOTE | 2023-01-27 09:40 | NUR ---
PATIENT ALERT AND ORIENTED X3. PATIENT SITTING IN CHAIR EATING HER BREAKFAST. PATIENT DENIES PAIN AT THIS TIME AND REPORTS THAT HER CONCERN IS HER LEG SWELLING AND BEING UNABLE TO HELP HER WHEN HE GETS HOME FROM HAVING HEART SURGERY. PATIENT REQUESTED TO TALK TO VICE CHAIR AND VICE CHAIR WAS NOTIFIED THAT PATIENT WANTED TO TALK TO HER. PATIENT HAS A SMALL PUNCTURE TO HER RIGHT FOOT PLANTAR AREA. SHE REPORTS BEING CURRENT WITH HER TETANUS SHOT. PATIENT IS ON 2L OXYGEN N/C. CALL LIGHT WITHIN REACH. BED AT LOWEST POSITION.
[2023-01-27] MEDS ORDERED: Budesonide Neb Susp 0.5 MG/2 ML AMP IH SCH (11:30)
[2023-01-27] MEDS ORDERED: Albuterol/Ipratropium 3 MG-0.5 MG/3 ML Neb Soln IH PRN (11:30)
[2023-01-27] MEDS ORDERED: Furosemide 40 MG/4 ML VIAL IV ONE (11:30)
[2023-01-27] MEDS ORDERED: predniSONE 20 MG TAB PO SCH (12:00)
[2023-01-27] MEDS ORDERED: PROAIR RES117 MCG/Ac PO (12:52)
[2023-01-27] MEDS ORDERED: Albuterol/Ipratropium 3 MG-0.5 MG/3 ML Neb Soln IH SCH (14:00)
[2023-01-27] MEDS ORDERED: cefTRIAXone 1 G in Water For Injection,Sterile 10 ML IV SCH (15:00)
--- NOTE | 2023-01-27 16:47 | NUR ---
Newspaper Distributor Supervisor spoke with patient with the assistance of the [facility] Plate Glass Installer Helper service. Patient lives in [place] and sees Dr. Kendrick for primary care. Patient mainly wanted to discuss how concerned she is with care for her , Garrett (ph#[phone]) who just had open heart surgery. Patient advised they will need help around the house and they live alone. Patient suggested SW call her to help him with this. ELIZABETH contacted Garrett who advised he is at [facility] and may be discharged tomorrow. ELIZABETH discussed Home Health vs Private Duty services as Garrett stated he mainly needs help with household duties. Garrett expressed understanding that this is not something Medicare will cover. Garrett stated his Case Management team has discussed Leslie with him and he is also working with the [facility] in [place] on some in home supports. Garrett advised his CM team at will likely be in contact with ELIZABETH Grant at the NH to discuss this tomorrow. ELIZABETH spoke with NAREN Felix who advised patient did very well with her and could return home at time of discharge. ELIZABETH advised she spoke with about private duty services to assist with household duties.
--- NOTE | 2023-01-27 20:30 | NUR ---
Initial shift assessment done- denies pain, not wearing o2, sats 96-98% on RA, Up to bathroom on her own- steady on her feet. Tele on ST, has been rfusing LORNA hose- states they are too tight, has the lower ext edema 3+. contiues with antibiotics and prednisone-
[2023-01-28 00:36] VITALS: BP_SYST 140
[2023-01-28 04:32] VITALS: BP 136/69; PULSE 87; TEMP 97.8
[2023-01-28 04:53] VITALS: BP_SYST 136
--- NOTE | 2023-01-28 05:07 | NUR ---
Quiet night, VSS, o2 sats 95% on RA. did give Tylenol for a headache earlier this morning- no other requests.
[2023-01-28 07:29] VITALS: BP 166/93; PULSE 87; TEMP 97.6
--- NOTE | 2023-01-28 08:00 | NUR ---
PT RESTING IN BED UPON ENTERING. ASSESSMENT DONE, PT DENIES PAIN AT THIS TIME. PT HAS A COUGH THAT IS NONPRODUCTIVE PER PT. BILATERAL LOWER EXTREMITY +2. IV IN LEFT HAND FLUSHES WELL. PT STATES THAT SHE NEEDS TO LEAVE TODAY DUE TO HER BEING RELEASED FROM THE HOSPITAL TODAY. PT ON ROOM AIR AND DENIES NEEDS AT THIS TIME. BED IN LOWEST POSITION, CALL LIGHT IN REACH.
[2023-01-28] MEDS ORDERED: LEVAQUIN 5500 MG/TA1 PO (08:48)
[2023-01-28] MEDS ORDERED: PREDNISONE20 MG PO (08:50)
[2023-01-28 08:55] LABS: HEMATOCRIT 39.7 % (37.0-47.0); HEMOGLOBIN 13.4 g/dl (12.5-16.0); MEAN CELL VOLUME 89 fl (80.0-100.0); MEAN CORPUSCULAR HEMOGLOBIN 30 pg (27-31); MEAN CORPUSCULAR HGB CONC 34 g/dl (33.0-37.0); MEAN PLATELET VOLUME 10.1 fl (7.4-10.4); PLATELET COUNT 322 K/mm3 (130-400); RED BLOOD COUNT 4.45 M/mm3 (4.10-5.30); REDCELL DISTRIBUTION WIDTH-CV 13.1 % (11.5-14.5)
[2023-01-28 09:00] VITALS: BP_SYST 166
[2023-01-28 09:09] LABS: CALCIUM 9.4 mg/dL (8.4-10.2); CREATININE, serum 0.7 mg/dL (0.57-1.11); MAGNESIUM 2.3 mg/dL (1.6-2.6); POTASSIUM 3.4 mmol/L (3.5-4.5)
--- NOTE | 2023-01-28 10:10 | NUR ---
IV AND TELE REMOVED. PT DRESSED IN PERSONAL CLOTHES. PT STATES THAT DAUGHTER IS ON THE WAY AND THIS NURSE ASKED IF SHE WOULD LIKE TO WAIT FOR HER DAUGHTER TO GET DISCHARGE PAPERWORK AND DENIES STATING THAT SHE UNDERSTANDS. PT GIVEN DISCHARGE INSTRUCTIONS, ALL QUESTIONS ANSWERED AND PT VERBALIZED UNDERSTANDING. PT DENIES NEEDS AT THIS AND INDEPENDENTLY WALKED TO WHEELCHAIR. PT ESCORTED TO PERSONAL VEHICLE BY ROMELIA CENTENO.
--- NOTE | 2023-01-28 14:06 | NUR ---
Insole Lip Turner attended clinical rounds with the team and patient is ready for discharge today. ELIZABETH spoke with patient about [facility], as that is the agency her talked with ELIZABETH about. Patient is agreeable to this. ELIZABETH contacted Garth at [facility] and faxed referral with discharge orders. Garth advised they will accept patient. ELIZABETH also contacted Juanita at the [place] to notify her that patient is hoping the [place] can offer some home health services to her spouse. Discharge Plan: Home with [facility]
== END 2023-01-28 10:10 | disposition home health service (06) | DRG 193 ==
LOC: COL.ER 15:20 → MEDICAL 17:20
PROVIDERS: Nurse Practitioner; Nurse Practitioner Primary Care; ADMIT Internal Medicine
DX: J18.9 Pneumonia, unspecified organism (principal); J96.01 Acute respiratory failure with hypoxia; J44.0 Chronic obstructive pulmonary disease with (acute) lower respiratory infection; J44.1 Chronic obstructive pulmonary disease with (acute) exacerbation; K21.9 Gastro-esophageal reflux disease without esophagitis; E11.9 Type 2 diabetes mellitus without complications; Z20.822 Contact with and (suspected) exposure to COVID-19; E66.9 Obesity, unspecified; E87.70 Fluid overload, unspecified; Z23 Encounter for immunization; Z90.710 Acquired absence of both cervix and uterus; Z86.16 Personal history of COVID-19; Z87.01 Personal history of pneumonia (recurrent); Z99.81 Dependence on supplemental oxygen; Z79.84 Long term (current) use of oral hypoglycemic drugs; Z87.891 Personal history of nicotine dependence; Z68.36 Body mass index [BMI] 36.0-36.9, adult
CPT/HCPCS: J0456; J0696; J1650; J1815; J1940; J7050; J7512

== ENCOUNTER 2023-05-01 08:00 | Outpatient (RCR) | payer MEDICARE, MEDICAID ==
[2023-04-28 10:46] VITALS: BP 127/85; PULSE 100; TEMP 98.1
--- NOTE | 2023-04-29 10:48 | NUR ---
Pt did not show to apt scheduled at 10am.Attempted to call,spoke with both pt and . agrees to bring pt at 1300 for abx today.
[2023-04-29 13:23] VITALS: BP 127/83; PULSE 110; TEMP 97.9
[2023-04-30 08:04] VITALS: BP 125/80; PULSE 100; TEMP 97.9
[~2023-05-01] VITALS: Ht 162.6 cm; Wt 99.0 kg
[2023-05-01 07:59] VITALS: BP 157/81; PULSE 100; TEMP 98.2
[~2023-05-01 08:00] MED LIST changes: +GLUCOPHAGE XR500 M1 PO; +LEVAQUIN 5500 MG/TA1 PO; +NEURONTIN300 MG/CAP PO; +PREDNISONE10 MG PO; +PREDNISONE20 MG PO; +PROAIR RES117 MCG/Ac PO; +TRELEGY ELLIPT1 EAC1 IH; +TRELEGY ELLIPT1 EACH IH; +cefTRIAXone 1 G,Lidocaine PF 1% 2.1 ML IM SCH
[2023-05-01] MEDS ORDERED: ROCEPHIN VIA1 G/VIAL IM (08:02)
[2023-05-02] MEDS ORDERED: cefTRIAXone 1 G,Lidocaine PF 1% 2.1 ML IM SCH (15:30)
[2023-05-02 16:15] VITALS: BP 139/85; PULSE 98; TEMP 97.7
== END 2023-05-02 16:25 | disposition home or self-care (01) ==
LOC: EUO 08:00
DX: H92.13 Otorrhea, bilateral (principal)
CPT/HCPCS: J0696

== ENCOUNTER → 2023-06-22 | Outpatient (CLI) | payer MEDICARE ==
[~2023-06-22] MED LIST changes: +ROCEPHIN VIA1 G/VIAL IM; -cefTRIAXone 1 G,Lidocaine PF 1% 2.1 ML IM SCH
== END ==
LOC: COL.CARD 15:10
DX: R06.02 Shortness of breath (principal)